=== PATIENT | male | born 1945 | race Caucasian/White ===

== ENCOUNTER 2019-08-13 11:56 | Inpatient (IN) | payer OTHER ==
[~2019-08-13] VITALS: Ht 193 cm; Wt 117.2 kg
[~2019-08-13 11:56] MED LIST: ADULT LOW DOSE81 MG PO; AUGMENTIN 875875 MG PO; BUSPIRONE HCL10 MG PO; CELEXA20 MG PO; CLONAZEPAM 1 MG1 M1 PO; COLACE100 MG PO; FLOMAX0.4 MG PO; HYDROXYZINE HCL50 MG PO; INDAPAMIDE2.5 MG PO; METOPROLOL SUCC50 MG PO; MILK OF MA2400 MG/10 PO; MOBIC7.5 MG PO; PROZAC 20 MG20 M1 PO; SEROQUEL200 MG PO; TESSALON PERLE100 MG PO; TRAMADOL 50 MG50 MG PO; TYLENOL325 MG PO; UNICOMPLEX M TA1 TA1 PO; WELLBUTRIN 100100 MG PO; XANAX 0.5 MG0.5 MG PO
[2019-08-13 11:57] VITALS: BP 120/51
[2019-08-13 13:17] LABS: ABSOLUTE NEUTROPHILS 15.9 thou/uL (1.4-8.2); BASOPHILS 0.2 % (0.0-2.0); EOSINOPHILS 0.4 % (0.0-3.0); HEMATOCRIT 38.8 % (42.0-52.0); HEMOGLOBIN 13.4 gm/dL (14.0-18.0); LYMPHOCYTES 3.4 % (24.0-44.0); MCH 31.5 pg (26.0-34.0); MCHC 34.5 g/dL (28.0-37.0); MCV 91.2 fL (80.0-100.0); MONOCYTES 5.2 % (1.0-8.0); PLATELET COUNT 238 thou/uL (150-400); POLYS 90.8 % (36.0-66.0); RBC 4.25 mil/uL (4.50-6.00); RDW 12.8 % (10.5-14.5); WBC 17.5 thou/uL (4.0-11.0)
[2019-08-13 13:28] LABS: ANION GAP 5 mmol/L (7-16); BUN 20 mg/dL (7-18); CALCIUM 9.3 mg/dL (8.5-10.1); CHLORIDE 89 mmol/L (98-107); CO2 29 mmol/L (21-32); CREATININE 1.2 mg/dL (0.7-1.3); GLUCOSE 121 mg/dL (74-106); SODIUM 123 mmol/L (136-145)
[2019-08-13 13:29] LABS: POTASSIUM 4.1 mmol/L (3.5-5.1)
[2019-08-13 13:38] LABS: ALBUMIN 3.5 g/dL (3.4-5.0); SGOT 29 U/L (15-37); SGPT 18 U/L (30-65); TOTAL BILIRUBIN 0.6 mg/dL (<0.1-1.0); TOTAL PROTEIN 7.1 g/dL (6.4-8.2); TROPONIN-I <0.06 ng/mL (<0.06)
[2019-08-13 14:28] LABS: URINE BILIRUBIN NEGATIVE (Negative); URINE BLOOD NEGATIVE (Negative); URINE CLARITY CLEAR; URINE COLOR YELLOW; URINE GLUCOSE-RANDOM* NEGATIVE (Negative); URINE KETONES NEGATIVE (Negative); URINE LEUKOCYTES-REFLEX NEGATIVE (Negative); URINE NITRITE-REFLEX NEGATIVE (Negative); URINE PROTEIN (DIPSTICK) NEGATIVE (Negative); URINE UROBILINOGEN 0.2 E.U./dl (0.2-1.0)
[2019-08-13 15:02] VITALS: BP 112/80
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
[2019-08-13 16:30] VITALS: BP 130/69
[2019-08-13] MEDS ORDERED: SERTRALINE HCL50 MG PO (16:55)
[2019-08-13 17:10] LABS: CALCIUM 9.3 mg/dL (8.5-10.1); CREATININE 1.2 mg/dL (0.7-1.3); POTASSIUM 3.9 mmol/L (3.5-5.1)
[2019-08-13 17:17] LABS: ALBUMIN 3.7 g/dL (3.4-5.0); TOTAL PROTEIN 7.3 g/dL (6.4-8.2)
[2019-08-13] MEDS ORDERED: CLARITIN10 M3 PO (17:38)
[2019-08-13] MEDS ORDERED: TUMS300 MG PO (17:39)
[2019-08-13] MEDS ORDERED: ATIVAN0.5 M1 PO (17:41)
[2019-08-13] MEDS ORDERED: MELATONIN3 M1 PO (17:41)
[2019-08-13] MEDS ORDERED: KAPSPARGO SPRIN25 MG PO (17:44)
[2019-08-13 17:45] LABS: TSH 0.885 uIU/mL (0.358-3.740)
[2019-08-13 19:33] VITALS: BP 133/55
[2019-08-13 23:50] VITALS: BP 122/54
[2019-08-14 01:05] LABS: CREATININE 1.3 mg/dL (0.7-1.3); POTASSIUM 3.2 mmol/L (3.5-5.1)
--- NOTE | 2019-08-14 04:11 | NUR ---
SLEPT PART OF SHIFT. BILATERAL EYES WITH YELLOW DRAINAGE AT TIMES, WASH WITH WARM CLOTH AND EYE GTTS PER ORDERS. TURNS SELF IN BED WITHOUT COMPLAINTS. DENIES NEED FOR PAIN MEDICATION. APPEARS CALM. WORKING ON GOALS AND PLAN OF CARE FOR NOC. PROGRESSING SLOWLY TOWARDS DISCHARGE GOALS. CONTINUE TO ASSES CLOSELY.
[2019-08-14 04:20] VITALS: BP 113/51
[2019-08-14 07:13] LABS: HEMATOCRIT 36.7 % (42.0-52.0); HEMOGLOBIN 12.6 gm/dL (14.0-18.0); MCH 31.8 pg (26.0-34.0); MCHC 34.3 g/dL (28.0-37.0); MCV 92.6 fL (80.0-100.0); RBC 3.96 mil/uL (4.50-6.00); RDW 13.2 % (10.5-14.5); WBC 8.6 thou/uL (4.0-11.0)
[2019-08-14 07:29] LABS: CALCIUM 8.6 mg/dL (8.5-10.1); CREATININE 1.1 mg/dL (0.7-1.3); MAGNESIUM 1.8 mg/dL (1.8-2.4); POTASSIUM 3.7 mmol/L (3.5-5.1)
[2019-08-14 09:37] VITALS: BP 134/55
[2019-08-14 09:40] VITALS: BP 131/74
[2019-08-14 09:43] VITALS: BP 115/72
--- NOTE | 2019-08-14 11:09 | EKG ---
[facility] [place] [address] ELECTROCARDIOGRAM REPORT Name: GRACIA TIMMONS Room #: 212-P ADM IN M.R.#: [id number] Admission: 08/13/19 Attend Phys: Horace Lagos MD Discharge: Date of : 41 Report #: [id number] THIS REPORT FOR: cc: Lorenzo Gallardo MD, Srinath MD Lundgren,Shilo Torres MD [facility] ~ THIS REPORT FOR: //name// [facility] ED Test Date: 2019-08-13 Test Time: 12:45:48 Pat Name: GRACIA TIMMONS Department: Room: [facility] Gender: M Hanger: BERHANE : 1945 Requested By: Angie Argueta Order Number: [id number] MD: Shilo Benavides Measurements Intervals [place] Rate: 66 P: -41 CA: 247 QRS: -24 QRSD: 108 T: 65 QT: 411 QTc: 431 Interpretive Statements Sinus rhythm Prolonged CA interval Nonspecific intraventricular conduction delay Compared to ECG 12/25/2014 12:29:48 First degree AV block now present Electronically Signed On 08-14-2019 11:07:36 CDT by Shilo Benavides [email or web address] <ELECTRONICALLY SIGNED> By: Shilo Benavides MD, [facility] 08/14/19 1107 1245 1245 Shilo Benavides MD, [facility] /EPI
[2019-08-14 16:42] VITALS: BP 124/65
--- NOTE | 2019-08-14 16:48 | NUR ---
ASSUMED CARE PT SHIFT CHANGE. ASSESSMENT CHARTED. MEDS GIVEN PER JUN. PT ALERT AND ORIENTED.VSS. DENIES PAIN. O2 SATS WNL ON ROOM AIR. PT UP TO COMMODE MODERATE ASSIST TOLERATING WELL. FACIAL BRUSING NOTED AROUND EYES AND CHIN AREA. EYE GTTS GIVEN PER ORDERS FOR EYE INFECTION. PT REQUESTING NOT TO BE SENT BACK TO CURRENT FACILITY. PT REFERRED TO CASE MANAGEMENT. APPETITE ADEQUATE, URINE OUTPUT ADEQUATE. SR MONITOR WITH FIRST DEGREE, OCCASIONAL PVC'S. PT CURRENTLY RESTING UP IN CHAIR DENYING OF NEEDS. WILL CONTINUE TO MONITOR AND FOLLOW THE POC.
[2019-08-14 19:36] VITALS: BP 146/70
[2019-08-15] VITALS (7 sets, daily range): BP systolic 122–138; BP diastolic 56–65
[2019-08-15 05:53] LABS: HEMATOCRIT 35.9 % (42.0-52.0); HEMOGLOBIN 12.5 gm/dL (14.0-18.0); MCHC 34.8 g/dL (28.0-37.0); MCV 92.1 fL (80.0-100.0); RBC 3.9 mil/uL (4.50-6.00); RDW 13.2 % (10.5-14.5); WBC 9.1 thou/uL (4.0-11.0)
[2019-08-15 06:10] LABS: CALCIUM 8.4 mg/dL (8.5-10.1); CREATININE 1.1 mg/dL (0.7-1.3); MAGNESIUM 1.7 mg/dL (1.8-2.4); POTASSIUM 3.7 mmol/L (3.5-5.1)
--- NOTE | 2019-08-15 06:35 | NUR ---
PATIENTS CARES WERE ASSUMED AT SHIFT CHANGE. PATIENT WAS ASSESSED AND MEDS WERE PASSED . PATIENT HAS ALOT OF BRUSING ON HIS FACE. PATIENT ALSO HAS CONJUCTIVITIS OU AND HAS GTTS HE TAKES. GTTS PUT IN THE ROOM TO NOT CONTAMINATE OTHERS. PATIENT WAS WASHED UP BEFORE BED AND LINENS WERE CHANGED.
--- NOTE | 2019-08-15 08:59 | 2DMMODE ---
[facility] [place] [address] 2 D/M-MODE ECHOCARDIOGRAM Name: GRACIA TIMMONS Room #: 212-P ADM IN M.R.#: [id number] Admission: 08/13/19 Attend Phys: Horace Lagos MD Discharge: Date of : 41 Report #: [id number] THIS REPORT FOR: cc: Lorenzo Gallardo MD, Srinath MD Lundgren,Shilo Torres MD [facility] ~ APPROVED REPORT Study performed: 08/15/2019 08:19:37 EXAM: Comprehensive 2D, Doppler, and color-flow Echocardiogram Patient Location: Bedside Room #: 212 Status: routine BSA: 2.48 HR: 71 bpm BP: 133/59 mmHg Rhythm: NSR Indications Sycopal event. HTN. 2D Dimensions RVDd: 42.51 mm IVSd: 12.45 (7-11mm) LVOT Diam: 23.87 (18-24mm) LVDd: 51.98 mm PWd: 11.00 (7-11mm) Ascending Ao: 38.83 (22-36mm) LVDs: 37.15 (25-40mm) Aortic Root: 41.85 mm Volumes Left Atrial Volume (Systole) Single Plane 4CH: 45.66 mL Single Plane 2CH: 58.03 mL LA ESV Index: 23.00 mL/m2 Aortic Valve AoV Peak Nirmal.: 1.59 m/s AO Peak Gr.: 10.06 mmHg LVOT Max P.77 mmHg LVOT Max V: 1.20 m/s HASMUKH Vmax: 3.39 cm2 Mitral Valve E/A Ratio: 0.8 MV Decel. Time: 139.45 ms [facility] [address] [place] [address] 2 D/M-MODE ECHOCARDIOGRAM Name: GRACIA TIMMONS Room #: 212-P [facility] IN [facility]#: [id number] Admission: 08/13/19 Attend Phys: Horace Lagos, Discharge: Date of : 41 Report #: [id number] MV E Max Nirmal.: 0.85 m/s MV A Nirmal.: 1.03 m/s MV PHT: 40.44 ms IVRT: 69.20 ms Pulmonary Valve PV Peak Nirmal.: 1.07 m/s PV Peak Gr.: 4.56 mmHg Tricuspid Valve RAP Estimate: 5.00 mmHg Left Ventricle The left ventricle is normal size. There is normal LV segmental wall motion. Mild concentric left ventricular hypertrophy. Left ventricular systolic function is normal. LVEF is 55-60%. Mild diastolic dysfunction Right Ventricle The right ventricle is normal size. The right ventricular systolic function is normal. Atria The left atrium size is normal. The right atrium size is normal. Aortic Valve The aortic valve is mildly calcified. Mild aortic regurgitation. There is no aortic valvular stenosis. Mitral Valve The mitral valve is normal in structure. There is no mitral valve regurgitation noted. No evidence of mitral valve stenosis. Tricuspid Valve The tricuspid valve is normal in structure. There is no tricuspid valve regurgitation noted. Unable to assess PA pressure. Pulmonic Valve Pulmonic valve is not well visualized. Great Vessels Aortic root is dilated at 4.2cm. The ascending aorta is mildly dilated (3.9cm). IVC is normal in size and collapses >50% with inspiration. Pericardium [facility] [place] ([facility]: [place]) [place] [address] 2 D/M-MODE ECHOCARDIOGRAM Name: SHANELLEGRACIA THEODORA Room #: 212-P [facility] IN M.R.#: [id number] Admission: 08/13/19 Attend Phys: Horace Lagos, Discharge: Date of : 41 Report #: [id number] There is no pericardial effusion. <Conclusion> Left ventricular systolic function is normal. There is normal LV segmental wall motion. LVEF is 55-60%. Mild diastolic dysfunction The aortic valve is mildly calcified. Mild aortic regurgitation, no stenosis. The mitral valve is normal in structure. No mitral valve regurgitation. Unable to assess pulmonary artery pressure. The ascending aorta is mildly dilated (3.9cm). There is no pericardial effusion. <ELECTRONICALLY SIGNED> By: Shilo Benavides MD, [facility] 08/15/19 0858 0858 7 Shilo Benavides MD, FACC /INF
--- NOTE | 2019-08-15 13:41 | NUR ---
Patient admits from [facility] post fall. Patient reported to RN he does not want to return to his apt. Sp with patient via phone. He reports he is in "great despair" if someone could legally euthonize him he would be good with that. He reports ailing health. He is estranged from 2 children. He reports he is own person and no support socially. He has not spoken to son for 35 years. He reports he has been in/out of facilities including psych treatment. He reports he has been to research psych and will never return to there and [place]. Patient reports this was awhile back that he rec treatment there. "I know how this works...I guess you could check on Ginny." In further discussion with patient he is interested in skilled care at [facility] and to transition back to his apt. He wants to know if that is possible. Call placed to [facility]. Sp with Sully who reports patient with recent non compliant behavior and worse mood. She reports all patient are to quantine and patient upset he can no longer go to dining area. He reported to nurse to send him to ER and when nurse did not he became upset. Sully requests psych eval for patient. Casemgt to inquire into skilled for patient then return to apt. Patient able to formulate a goal. Psych eval ordered. Therapy evals in place.
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
--- NOTE | 2019-08-15 16:07 | NUR ---
FAXED CLINICAL UPDATE TO [facility]ARE [facility] RECEIVED CONFIRMAATION AND SPOKE WITH JOHN WEINER LIASON FOR THE [facility] SHE RECEIVED UPDATE AND WILL LOOK INTO FOR POSS SKILLED STAY. DP TO FOLLOW.
--- NOTE | 2019-08-15 22:31 | NUR ---
PROGRESS PT DEPRESSED MAKING STATEMENTS THAT HE DOESN'T WANT TO WAKE UP AFTER HE GOES TO SLEEP. C/O HAVING NO FAMILY AND BEING ALONE . VSS TELE INTACT READING SR WITH SOME PACS WITH RATES IN 70'S. IV INSERTED IN LEFT FOREARM NS@100 AND CEFAZOLIN INFUSING. FACE WITH BRUISING TO BOTH SIDES OF CHIN BOTH EYES SWOLLEN WITH BRUISING, NOSE IF FX RATS PAIN AN 8 GIVEN TRAMADOL, TRAZADONE AND CLONEZEPAM FOR ANXIETY PAIN AND SLEEP. TO TRANSFER TO ROOM 444 ADMISSION STATUS DOWNGRADED TO MED SURG REPORT CALLED PT TO TRANSFER VIA W/C.
--- NOTE | 2019-08-15 22:55 | NUR ---
PT'S ADMIT STATUS DOWNGRADED TO MED SURG PT TO TRANSFER TO 4S ROOM 444 REPORT GIVEN TO SIMONE OLIVA ON PT TRANSFERRED VIA ALL BELONGINGS AND CHART SENT WITH.
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
[2019-08-16 05:07] VITALS: BP 120/56
[2019-08-16 05:55] LABS: HEMATOCRIT 36.6 % (42.0-52.0); HEMOGLOBIN 12.6 gm/dL (14.0-18.0); MCH 31.7 pg (26.0-34.0); MCHC 34.4 g/dL (28.0-37.0); MCV 92.2 fL (80.0-100.0); RBC 3.97 mil/uL (4.50-6.00); RDW 13.1 % (10.5-14.5); WBC 7.5 thou/uL (4.0-11.0)
[2019-08-16 06:03] LABS: CALCIUM 8.7 mg/dL (8.5-10.1); MAGNESIUM 1.9 mg/dL (1.8-2.4); POTASSIUM 3.8 mmol/L (3.5-5.1)
[2019-08-16 07:51] VITALS: BP 131/57
[2019-08-16] MEDS ORDERED: CIPROFLOXIN HC2.5 M1 OPHTHALMIC (13:00)
--- NOTE | 2019-08-16 13:07 | NUR ---
PT INIDCATED THAT HE WAS AGREEABLE WITH ADMISSION TO [address] [place] [address] HERE AT [facility]. PT IS FROM R[facility] AT [facility]. PT HAD WANTED TO GO TO THEIR HEALTH CENTER FOR POST ACUTE CARE STAY UPON DC PRIOR TO BEING AGREEABLE TO [facility]. LIAISON DANIELA WAS NOTIFIED OF HIS DESIRE TO GO TO CARE FACILITY PRIOR TO HIS POSSIBLE RETURN TO HIS RCF APARTMENT. PT INDICATED HE DOUBTS THAT HE WILL BE ABLE TO RETURN TO HIS [facility] APPARTMENT AND STATED THAT HE IS INTERESTED IN LOOING AT SKILLED THEN POSSIBLE LTC AT [facility]. CM EXPLAINED THAT PT WOULD CONTINUE TO HAVE PT AND OT ON [facility] AND THAT RECOMENDATIONS FOR APPROPRIATE LEVEL OF DC NEEDS WILL BE DETERMINED. CM HADN'T SENT REFERRAL TO [place] OF THIS NOTE. PT IS TO DISCHARGE TO [facility] THIS DAY.
--- NOTE | 2019-08-16 17:02 | NUR ---
PT IS AOX3, VSS, REPORTS HE WILL TRANSFER TO 5S. PT MADE STATEMENTS TO NURSE AND OTHER STAFF THAT THE WORLD WOULD BE BETTER OFF IF HE WAS . PT CALLS APPROPRIATELY. PAIN IN NOSE AND FACE IS CONTROLLED WITH ORAL ANALGESIC TRAMADOL. PT IS UP TO WC WITH 1 PERSON ASSIST. IV REMOVED FROM LEFT FA. REPORT CALLED TO NURSE ON 5S. PT TRANSFERRED BY WHEELCHAIR AND DISCHARGED FROM THIS UNIT.
== END 2019-08-16 17:17 | DRG 155 ==
LOC: ER 11:56 → EROBS 14:52 → 2N 14:52 → 4S 08-15 23:05
PROVIDERS: Nurse Practitioner Family; ADMIT Internal Medicine
PROC: 0CQ7XZZ Repair Tongue, External Approach (ICD-10-PCS; principal; 2019-08-13)
DX: S02.2XXA Fracture of nasal bones, initial encounter for closed fracture (principal); E87.1 Hypo-osmolality and hyponatremia; R44.3 Hallucinations, unspecified; S01.512A Laceration without foreign body of oral cavity, initial encounter; I95.1 Orthostatic hypotension; I10 Essential (primary) hypertension; F41.9 Anxiety disorder, unspecified; F32.9 Major depressive disorder, single episode, unspecified; K21.9 Gastro-esophageal reflux disease without esophagitis; M19.90 Unspecified osteoarthritis, unspecified site; F39 Unspecified mood [affective] disorder; E86.0 Dehydration; M47.812 Spondylosis without myelopathy or radiculopathy, cervical region; W01.0XXA Fall on same level from slipping, tripping and stumbling without subsequent striking against object, initial encounter; N40.0 Benign prostatic hyperplasia without lower urinary tract symptoms; E83.42 Hypomagnesemia; Z79.899 Other long term (current) drug therapy; Z88.5 Allergy status to narcotic agent; Z88.8 Allergy status to other drugs, medicaments and biological substances; Y93.89 Activity, other specified; Y92.89 Other specified places as the place of occurrence of the external cause; Y99.8 Other external cause status
CPT/HCPCS: 10081; 10102

== ENCOUNTER 2019-08-16 17:36 | Inpatient (IN) | payer OTHER ==
[~2019-08-16] VITALS: Ht 193 cm; Wt 116.6 kg
[~2019-08-16 17:36] MED LIST changes: +ATIVAN0.5 M1 PO; +CIPROFLOXIN HC2.5 M1 OPHTHALMIC; +CLARITIN10 M3 PO; +KAPSPARGO SPRIN25 MG PO; +MELATONIN3 M1 PO; +SERTRALINE HCL50 MG PO; +TUMS300 MG PO
[2019-08-16 18:06] VITALS: BP 138/64
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
[2019-08-16 20:06] VITALS: BP 140/69
--- NOTE | 2019-08-17 01:06 | NUR ---
Care assumed of patient at 1915: Patient resting in bed at start of shift. Patient ate 100% dinner. Patient appears anxious, sad, depressed. Reports depression as 10/10. Reports that this is all a mistake and he wants to go home. Patient easily irritable about multiple things. Patient upset that he can't control his bed settings independently, he can't have his cell phone, he wants his independent social sciences professor to continue to work with him (not the hospital social sciences professor). States that he does not "fit in this bubble" and we need to accomodate to his likings. Denies SI/HI/AH/VH. Patient has remained in bed throughout the shift. Patient took HS medication whole without difficulty. Patient made sure to notify this nurse at least 5 times that he has his masters degree, especially when avoiding questions asked. Denies pain or discomfort. Patient declined to sign consents this shift and told nurse "I know what they say, you just sign them". Education provided on need for them to be signed, states that he understands and he is "not stupid". Patient has bruising to face due to fall that occurred on 08/12 prior to admission.
[2019-08-17 08:31] VITALS: BP 126/67
--- NOTE | 2019-08-17 09:02 | NUR ---
[id number] Alessio was lying in bed with his breakfast on hte table. I asked if he needed any help. He was irritated. He stated his brkst had been sitting for 45 min and was cold. I offered to warm up his brkst. I offered to help him sit up. He proceed to inform me of his needs. I offered to sit up up on the side of the bed. He informed he that he could not eat sitting on the side of the bed as he "needs back support." I warmed up his brkst. I got a chair for him. I started to put on his shoes with legs braces, he stated he did not need them. I asked how he moves. He stated "isn't it obvious." I stated "no, sir it is not. This is the first time I met you, I am not aware of your mobility." I asked a GENERAL DENTIST/OWNER for assistance. He transfered with min - mod assitance x2. He is very irritable; he has many complaints about the unit i.e. no call light, cold bkfst and laying in bed to long. "I know about physiology and lying in bed to long is not good for the body. I explained the rationale for the call bells. He ate his brkst and then asked to go back to bed. As I left the room he still was complaining. Nothing I did for him was good enough.
--- NOTE | 2019-08-17 10:51 | NUR ---
Nutrition: pt admitted to [facility] unit with SI, depression from acute care short stay for S/P fall with nasal septum fx, tongue laceration, bruised face. 2 pt. risk indicated on nsg admission assessment. PMH: HTN, GERD, depression, anxiety, borderline DM. Current weight 257#. No weight hx available and pt reports weight loss but is unable to quantify amount or UBW. BMI 31, obesity class 1. PO intake past 4 days documented as 80-100% of meals. Pt reports he disagrees and had not been getting proper nutrition at his facility. Unable to provide any food preferences to RD. During interview, had to redirect multiple times, was very pre-occupied with being here and multiple aspects of care. Unhappy and complaining about everything, relayed to staff. Appears well nourished. Will monitor weight and intake trends but no intervention planned at present, place as low risk. complaining about everything, relayed to staff.
--- NOTE | 2019-08-17 16:03 | NUR ---
LOLA met with pt bedside. During her conversation pt's nurse and Dr. De La Rosa came in and talked to pt about his consent to treat forms. Pt eventually signed them after explaination from staff because he would like assistance getting into SNF. Pt said that he has been 1x and is now . He also has 2 children he is estranged from. He currently resides at the [facility] in [facility]; he told SW he sometimes does respite on the LTC side when he wants a break. He receives psych services through [facility]. He said he is not currently suicidal and has no method or plan. However, he does sometimes have hopeless thoughts. SW team will continue to follow pt during his stay on this unit.
--- NOTE | 2019-08-17 17:53 | NUR ---
IRRITABLE/DYSPHORIC MOOD UPON INITIAL APPROACH AND THROUGHOUT SHIFT. MULTIPLE COMPLAINTS REGARDING NO TV,NO CALL LIGHT,NO CELL PHONE STATING "JUST SENT ME BACK TO THAT OTHER FLOOR-I COULD HAVE ALL THAT STUFF WITH ME THERE AND I WAS GETTING MORE THERAPY THERE" DID HAVE LARGE BM. VOIDING PER URINAL. DENIES SI/SH/HI BUT IS VERY DRAMATIC IN STATEMENTS IE "IF I HAVE TO STAY HERE VERY LONG I WILL -I WON'T MAKE IT OUT" DENIES PLAN OR INTENT. SOME MILD PARANOIA NOTED IN CONVERSATION STATING "I DON'T TRUST ANYTHING YOU TELL ME I'VE BEEN LIED TOO TO MUCH-I AM AFRAID I WILL BE HERE FOREVER. DID REPORT GENERALIZED JOINT PAIN AND STIFFNESS RATED A 7 ON 1-10 SCALE ULTRAM 50MG GIVEN PO PRN AT 1230-DID COME OUT OF ROOM AND SIT IN GERICHAIR WITH REPORTED DECREASE IN PAIN TO A 3 AFTER ULTRAM. USING ROLLER WALKER BUT GAIT IS UNSTEADY AND WILL REFUSE OFFERS OF ASSISTANCE AT TIMES.
[2019-08-17 20:07] VITALS: BP 136/70
--- NOTE | 2019-08-17 23:33 | NUR ---
Assumed care of patient this pm shift. Patient in bed in his room. Patient appears depressed. Patient is calm and cooperative. Patient takes medications whole. Patient has several bruises on his chin and around his eyes from a previous fall. Patients affect is blunted. Patients clothes are clean. Patients assessment shows clear breath sounds, active bowel sounds, and s1 s2 heard with auscultation. Patient did not voice any concerns this evening. We will continue to monitor.
[2019-08-18 09:03] VITALS: BP 147/68
--- NOTE | 2019-08-18 11:03 | NUR ---
LOLA contacted [employer] to locate pt's psych doctor's info in preparation for discharge. SW team will continue to follow pt during his stay on this unit.
[2019-08-18] MEDS ORDERED: ZOLOFT100 MG PO (13:51)
[2019-08-18] MEDS ORDERED: MELATONIN5 M1 PO (13:52)
[2019-08-18] MEDS ORDERED: PROTONIX 20 MG20 M1 PO (13:52)
--- NOTE | 2019-08-18 14:45 | NUR ---
LOLA D/C Note Chica lft a vm for LOLA stating that she arranged transportation for pt for 1430. LOLA discussed this with Dr. De La Rosa who stated 1600 would be better. LOLA relayed this info for Chica who arranged transportation for 1600. LOLA provided update to pt who was in agreement with the plan. LOLA faxed pt's docs to [phone] including a [id number]. LOLA will file these docs and confirmation page in pt's hospital file. No other needs for SW team to address at this time.
--- NOTE | 2019-08-18 16:41 | NUR ---
ATTEMPTED X2 TO CALL NURSING REPORT TO [facility] INITIAL ATTEMPT RESULTED IN BEING TRANSFERED X3 AND BEING TOLD TO CALL BACK TO MAIN NUMBER AND ASK FOR RN "AT THE FRONT" MAIN NUMBER CALLED AGAIN AND TRANSFERED TO RN SALES AND OPERATIONS TRAINEE AND PHONE RANG FOR 5 MINUTES BEFORE EVENTUALLY DISCONNECTIN. MAIN NUMBER CALLED FOR 3RD TIME AND MESSAGE LEFT FOR INSULATION PROFESSIONAL TO HAVE REHAB UNIT CALL ME IF THEY NEEDED REPORT. DC PAPERWORK REVIEWED WITH PT INCLUDING MEDS,FOLLOW UP RECCOMDATIONS AND WHEN TO SEEK EMERGENCY CARE-DENIES SI/SH/HI. NO NOTED OR REPORTED ACUTE PSYCHOSIS-STATES HE IS "GLAD TO BE LEAVING I WOULD IF I HAD TO STAY HERE LONGER" PERSONAL BELONGINGS RETRIEVED FROM SECURITY AND SENT WITH PT ALONG WITH HARDCOPY PRESCRIPTIONS,DC INSTRUCTIONS,LABS ETC. LEFT FLOOR VIA WC ACCOMPNIED BY FOOD SERVICE TO AWAITING TRANSPORTATION FROM RECEIVING FACILITY. DENIES COMPLAINTS AT TIME OF DC
--- NOTE | 2019-08-18 16:41 | NUR ---
ASSUMED CARE OF PATIENT AT 0715, PATIENT ALERT AND ORIENTED X 4. PATIENT C/O PAIN WITH NOSE, TRAMADOL 1 TABLET GIVEN THIS AM. PATIENT IN BED AT START OF THE SHIFT. INCONT. OF URINE X 2 THIS SHIFT. PATIENT HAS FACIAL BRUISING NOTED. PATIENT ASSISTED UP TO THE RECLINER PRIOR TO LUNCH. PATIENT APPEARS TO BE DEPRESSED, HAS MULTIPLE COMPLIANTS ABOUT HIS CARE. DR MALIK HERE THIS AFTERNOON, STATES PATIENT WILL BE DISCHARGING TO REHAB FACILITY THIS AFTERNNON AROUND 1600. PATIENT C/O HEADACHE, TYLENOL 650 MG GIVEN WITH RELIEF. RAFAEL/RN CALLED REPORT TO THE REHAB. PATIENT DRESSED AND ASSISTED TO THE WHEELCHAIR, ALL PERSONAL BELONGINGS SENT WITH THE PATIENT. THIS RN TOOK PATIENT DOWN TO THE WHEELCHAIR VAN FOR TRANSPORT TO THE FACILITY.
== END 2019-08-18 16:00 | DRG 881 ==
LOC: SBH 17:36
PROVIDERS: ADMIT Psychiatry & Neurology Psychiatry
DX: F32.9 Major depressive disorder, single episode, unspecified (principal); E87.1 Hypo-osmolality and hyponatremia; R45.851 Suicidal ideations; I10 Essential (primary) hypertension; M14.672 Charcot's joint, left ankle and foot; F41.9 Anxiety disorder, unspecified; M47.812 Spondylosis without myelopathy or radiculopathy, cervical region; N40.0 Benign prostatic hyperplasia without lower urinary tract symptoms; Z79.899 Other long term (current) drug therapy; Z88.6 Allergy status to analgesic agent; Z88.5 Allergy status to narcotic agent
CPT/HCPCS: 10880

== ENCOUNTER 2019-09-07 15:02 | Inpatient (IN) | payer OTHER ==
[~2019-09-07] VITALS: Ht 193 cm; Wt 109.3 kg
[~2019-09-07 15:02] MED LIST changes: +MELATONIN5 M1 PO; +PROTONIX 20 MG20 M1 PO; +ZOLOFT100 MG PO
[2019-09-07 15:08] VITALS: BP 135/72
[2019-09-07 15:42] LABS: ABSOLUTE NEUTROPHILS 14.8 thou/uL (1.4-8.2); BASOPHILS 0.2 % (0.0-2.0); EOSINOPHILS 0.9 % (0.0-3.0); HEMATOCRIT 44.9 % (42.0-52.0); HEMOGLOBIN 15.8 gm/dL (14.0-18.0); LYMPHOCYTES 6.3 % (24.0-44.0); MCH 32.5 pg (26.0-34.0); MCHC 35.3 g/dL (28.0-37.0); PLATELET COUNT 326 thou/uL (150-400); POLYS 85.6 % (36.0-66.0); RBC 4.88 mil/uL (4.50-6.00); RDW 13.4 % (10.5-14.5); WBC 17.3 thou/uL (4.0-11.0)
[2019-09-07 15:46] LABS: URINE BILIRUBIN NEGATIVE (Negative); URINE BLOOD NEGATIVE (Negative); URINE CLARITY CLEAR; URINE COLOR YELLOW; URINE GLUCOSE-RANDOM* NEGATIVE (Negative); URINE KETONES NEGATIVE (Negative); URINE LEUKOCYTES-REFLEX NEGATIVE (Negative); URINE NITRITE-REFLEX NEGATIVE (Negative); URINE PROTEIN (DIPSTICK) NEGATIVE (Negative)
[2019-09-07 15:57] LABS: AMP/METHAMP Negative (Negative); BARBITURATES Negative (Negative); BENZODIAZEPINES Negative (Negative); COCAINE Negative (Negative); METHADONE Negative (Negative); OPIATES Negative (Negative); PCP Negative (Negative)
[2019-09-07 16:29] LABS: ALBUMIN 4.4 g/dL (3.4-5.0); ANION GAP 11 mmol/L (7-16); BUN 23 mg/dL (7-18); CALCIUM 9.8 mg/dL (8.5-10.1); CHLORIDE 88 mmol/L (98-107); CO2 29 mmol/L (21-32); CREATININE 1.5 mg/dL (0.7-1.3); GLUCOSE 131 mg/dL (74-106); POTASSIUM 3.8 mmol/L (3.5-5.1); SALICYLATE < 2.8 mg/dL (2.8-20.0); SGOT 15 U/L (15-37); SGPT 22 U/L (30-65); SODIUM 128 mmol/L (136-145); TOTAL BILIRUBIN 0.7 mg/dL (<0.1-1.0); TOTAL PROTEIN 8.7 g/dL (6.4-8.2); TROPONIN-I <0.06 ng/mL (<0.06)
[2019-09-07 17:56] LABS: ALBUMIN 4.3 g/dL (3.4-5.0); TOTAL PROTEIN 8.7 g/dL (6.4-8.2)
[2019-09-07 18:22] LABS: TSH 1.231 uIU/mL (0.358-3.740)
[2019-09-07 18:43] VITALS: BP 108/44
[2019-09-07 19:23] VITALS: BP 124/61
[2019-09-07 19:30] VITALS: BP 123/65
--- NOTE | 2019-09-07 20:43 | NUR ---
ADMISSION ASSESSMENT COMPLETED.PT TALKS IN A MONOLOGUE, MOSTLY MUMBLES. PT THINKS WE ARE HERE COLLUDING WITH THE [facility], HE HOWEVER SAYS HIS MOUTH IS SORE, I LOOKED AT IT AND IT LOOKS DRY-SOME WHITE LAYER ON TONGUE BUT NO VISIBLE SORES OR ULCERS. HE SAYS HIS MOUTH LEUNG. PT IS INCONTINENT, HE CAME IN WEARING BRIEFS. THEY ARE SOAKED. PT HAS NO STRENGTH IN HIS LEGS. HE WAS ABLE TO SQUEEZE WITH BOTH HANDS LIGHTLY. SHOE BRACE TO LLE REMOVED.PT TELLS ME HIS NAME AND MONTH. PT WAS GETTING IRRITATED I KEPT ASKING HIM QUESTIONS. HE WAS GETTING LOUD AND OCCASIONALLY BLURTS OUT SOME CUSS WORDS. PT WANTS TO BE LEFT ALONE TO SLEEP. HE C/O EVERYWHERE PAIN BUT ALSO SAID "MY RECTUM" HURTS. HE EXPRESSES THAT HE WISHES HE COULD BUT DENIES HAVING TRIED TO KILL HIMSELF.SITTER IN ROOM FOR CONTINUOUS MONITORING.
[2019-09-08 04:50] LABS: HEMATOCRIT 38.4 % (42.0-52.0); MCH 32.2 pg (26.0-34.0); MCHC 34.8 g/dL (28.0-37.0); MCV 92.4 fL (80.0-100.0); RBC 4.16 mil/uL (4.50-6.00); RDW 13.4 % (10.5-14.5)
[2019-09-08 05:02] LABS: CALCIUM 8.6 mg/dL (8.5-10.1); CREATININE 1.2 mg/dL (0.7-1.3); MAGNESIUM 1.7 mg/dL (1.8-2.4)
[2019-09-08 05:04] VITALS: BP 159/77
[2019-09-08 05:23] LABS: HEMOGLOBIN 13.4 gm/dL (14.0-18.0)
--- NOTE | 2019-09-08 08:20 | EKG ---
[facility] [place] [address] ELECTROCARDIOGRAM REPORT Name: GRACIA TIMMONS Room #: 436-P ADM IN M.R.#: [id number] Admission: 09/07/19 Attend Phys: Horace Lagos MD Discharge: Date of : 41 Report #: [id number] THIS REPORT FOR: cc: Burke Aiken James D. DO Lundgren, Craig H. MD [facility] ~ THIS REPORT FOR: //name// [facility] ED Test Date: 2019-09-07 Test Time: 16:05:38 Pat Name: GRACIA TIMMONS Department: Room: 436 Gender: M Dispute Coordinator: BERHANE : 1945 Requested By: Les Oliva Order Number: [id number] MD: Shilo Benavides Measurements Intervals [place] Rate: 74 P: -23 NV: 225 QRS: -35 QRSD: 109 T: 92 QT: 389 QTc: 432 Interpretive Statements Sinus rhythm Prolonged NV interval Left anterior fascicular block Poor R wave progression Compared to ECG 08/13/2019 12:45:48 [place] has shifted leftward Electronically Signed On 09-08-2019 8:18:48 CDT by Shilo Benavides [email or web address] <ELECTRONICALLY SIGNED> By: Shilo Benavides MD, [facility] 09/08/19 0818 1605 1605 Shilo Benavides MD, FAC /EPI
[2019-09-08 08:22] VITALS: BP 133/68
--- NOTE | 2019-09-08 15:07 | NUR ---
PT IS FROM [facility] FAXED CLINICAL UPDATE TO FACILITY SPOKE WITH RAQUEL IN ADM SHE RECEIVED UPDATE. DP TO FOLLOW.
--- NOTE | 2019-09-08 16:57 | NUR ---
ASSUMED PATIENT CARE AT 0700. UNCOOPERATIVE,ANGRY, ACKWARD AT TIMES. ADMITTED FOR DEHYDRATION. REFUSES TO TAKE ORAL MEDICINE. SAYS EVERYBODY IS TRYING TO TROUBLE HIM. SITTER AT BEDSIDE. IF ASKED IF HE HAD ANY PAIN, SAYS PAIN ALL OVER THE BODY. IV LEFT HAND.
[2019-09-08 19:45] VITALS: BP 138/68
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
[2019-09-09 04:27] LABS: HEMATOCRIT 37.9 % (42.0-52.0); MCH 31.8 pg (26.0-34.0); MCHC 34.4 g/dL (28.0-37.0); MCV 92.4 fL (80.0-100.0); RBC 4.1 mil/uL (4.50-6.00); RDW 13.3 % (10.5-14.5); WBC 8.4 thou/uL (4.0-11.0)
[2019-09-09 04:45] LABS: CALCIUM 8.6 mg/dL (8.5-10.1); CREATININE 0.9 mg/dL (0.7-1.3); MAGNESIUM 1.8 mg/dL (1.8-2.4); POTASSIUM 3.7 mmol/L (3.5-5.1)
--- NOTE | 2019-09-09 07:33 | NUR ---
PT REFUSED TO SIGN ANY CONSENT PAPERWORK. DAUGHTER JAKE FUNEZ [phone] WAS CALLED THIS MORNING AND UPDTED ABOUT THE PATIENT.
[2019-09-09 07:40] VITALS: BP 140/50
--- NOTE | 2019-09-09 11:37 | NUR ---
FAXED CLINICAL UPDATE TO [facility] ON 09/07 SPOKE WITH RAQUEL IN ADM SHE RECEIVED UPDATE AND WILL BE ABLE TO ACCEPT BACK AT DISCHARGE.
--- NOTE | 2019-09-09 12:49 | NUR ---
ASSUMED CARE OF THE PT AT 0700. PT REFUSES TO GET OUT THE BED AND WORK WITH PT/OT. PT REFUSES TO EAT ANYTHING AND WILL ONLY TAKE SIPS OF WATER. PT STATES, "HE FEELS LIKE HE WANTS TO WASTE AWAY AND ", BUT HAS NO PLAN. INCREASED ROUNDING TO Q1 HOUR. PT REFUSED TO WEAR SPECIAL FOOT BRACE FOR L FOOT. L HAND IV DRY AND INTACT AND WRAPPED WITH PROTECTIVE COVERING. FALL PRECAUTIONS IN PLACE, BED IN THE LOWEST POSITION AND CALL LIGHT IS WITHIN REACH. WILL CONTINUE TO MONITOR THE PT.
--- NOTE | 2019-09-09 13:21 | NUR ---
CM REVIEWED CHART AND SPOKE WITH ATTENDING. PT IS SLOWLY PROGRESSING TOWARDS DISCHARGE GOALS AND IS READY FOR DISCHARGE SOON. PSYCHIATRIST SAW PATIENT AND MANAGING MEDICATIONS. PT HAD A SITTER YESTERDAY BUT ONCE SEEING THE PSYCHIATRIST THIS WAS DISCONTINUED. JING SPOKE WITH RAQUEL IN ADMISSIONS AT [facility] WHERE PATIENT CAME IN FROM. SHE STATES THAT PATIENT MUST BE OFF OF A SITTER FOR 48HRS PRIOR TO DISCHARGE AND THAT THEY MUST HAVE A NEGATIVE COVID TEST BEFORE ACCEPTING PATIENT BACK. JING NOTIFIED ATTENDING AND SITTER WAS DISCONTINUED ON 09/07 LATE IN EVENING SO EARLIEST DISCHARGE WOULD BE THURSDAY IF PATIENT IS MEDICALLY STABLE AND COVID TEST IS NEGATIVE. ONCE PATIENT IS MEDICALLY STABLE FOR DISCHARGE CONTACT RAQUEL IN ADMISSION AT [facility] CELL:[phone] TO FACILITATE DISCHARGE. SHE WILL ARRANGED TRANSPORT. YOU MUST FAX THE RESULT OF THE COVID TEST TO THEM PRIOR TO DISCHARGE AT FAX:[phone]. ALSO FAX DISCHARGE ORDERS AND SUMMARY TO THAT FAX. REPORT WILL NEED TO BE CALLED TO [phone]. CHART COPY WILL NEED TO BE SENT WITH PATIENT. JING SPOKE WITH XOCHILT MARTINEZ DAUGHTER [phone] WHO WANTS TO BE CONTACTED PRIOR TO DISCHARGE.
--- NOTE | 2019-09-09 14:21 | NUR ---
Physician would like to start calorie count to determine adequacy of oral intake. Envelope on door and will start 09/08, 09/09, 09/10
[2019-09-09 16:33] VITALS: BP 148/56
[2019-09-09 19:30] VITALS: BP 141/59
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
[2019-09-10 06:35] LABS: HEMATOCRIT 39.3 % (42.0-52.0); HEMOGLOBIN 13.8 gm/dL (14.0-18.0); MCH 32.2 pg (26.0-34.0); MCV 91.9 fL (80.0-100.0); RBC 4.27 mil/uL (4.50-6.00); RDW 13.4 % (10.5-14.5); WBC 9.7 thou/uL (4.0-11.0)
[2019-09-10 06:47] LABS: CALCIUM 9.1 mg/dL (8.5-10.1); MAGNESIUM 1.7 mg/dL (1.8-2.4)
--- NOTE | 2019-09-10 13:57 | NUR ---
PT CARE ASSUMED AT 0700. ALERT TO SELF. PT COMPLAINING ABOUT WANTING TO WITHOUT A PLAN. COVID TEST DONE WITH NEGATIVE RESULT. IV PATENT WITH NO REDNESS OR EDEMA. FLUIDS INFUSING. ONE TIME DOSE OF MAGNESIUM GOING. PT UP IN THE RECLINER WITH 2 ASSIST DUE TO CONTINUES COMMENTS OF "I CANNOT DO THIS' i WANT TO GET UP, BUT I CANNOT GET UP" iM WET AND NEED TO BE CLEANED,BUT CANNOT DO IT" MANY NEGATIVE COMMENTS FROM PT. PT DID TAKE HIS MEDICATION WITH LOTS OF ENCOURAGEMENT. PT DECLINED FAMILY UPDATE. PT TO DC TOMORROW TO [place]. CALMING MUSIC RUNNING IN ROOM. PT TAKING A NAP. FALL PROTOCOL IN PLACE. BED EXSTENDER PLACED ON BED. PT REFUSED HIS BREAKFAST AND LUNCH. CALL LIGHT IN REACH. WILL CONTINUE TO MONITOR. CALORIC INTAKE MONITORED.
[2019-09-10 17:04] VITALS: BP 130/71
[2019-09-10 19:15] VITALS: BP 136/84
--- NOTE | 2019-09-11 02:59 | NUR ---
ASSUMED PT CARE AT APPROX 1900.PT ALERT/FORGETFUL/CONFUSED AND PARANOID.PT WITH POOR APPETITE AND PO INTAKE.PT WAS ABLE TO EAT HALF CUP OF PUDDING AND 120CC OF APPLE JUICE SO FAR.PT AFRAID THAT IF DRINK OR EAT ,IT WILL MAKE HIM HAVE A BM AND URINATE A LOT.PT EDUCATED BUT HE IS STILL PARANOID ABOUT EATING AND DRINKING.PT INCONTINENT,AUDREY CARE WITH EACH INCONTINENCE.PT RESTING ON HIS BED AT THIS TIME.FALL PRECAUTIONS IN PLACE,CALL LIGHT WITHIN REACH.
[2019-09-11 03:30] VITALS: BP 144/61
[2019-09-11 07:29] LABS: HEMATOCRIT 39.5 % (42.0-52.0); HEMOGLOBIN 13.5 gm/dL (14.0-18.0); MCH 31.8 pg (26.0-34.0); MCHC 34.2 g/dL (28.0-37.0); MCV 93.2 fL (80.0-100.0); RBC 4.24 mil/uL (4.50-6.00); RDW 13.3 % (10.5-14.5); WBC 9.2 thou/uL (4.0-11.0)
[2019-09-11 07:55] LABS: CALCIUM 8.8 mg/dL (8.5-10.1); POTASSIUM 3.8 mmol/L (3.5-5.1)
--- NOTE | 2019-09-11 14:43 | NUR ---
PT CARE ASSUMED AT 0700. A&Ox4. PT HAS TAKEN HIS MEDICATIONS WITH A LOT OF ENCOURAGEMENT. DEHYDRATION RESOLVED. PT IS UP IN THE RECLINER. PT IS DISCHARGING BACK TO [facility] TODAY. IV IS PATENT WITH NO REDNESS OR EDEMA. IV WILL BE REMOVED BEFORE DISCHARGE. FAMILY NOTIFIED [facility] DISCHARGE. TRANSPORTATION WILL BE ARRANGE BY [facility]. FALL PROTOCOL IN PLACE. CALL LIGHT IN REACH. WILL CONTINUE TO MONITOR.
--- NOTE | 2019-09-15 09:04 | NUR ---
cm received a call from [facility] WHO STATES THEY ARE IN NEED OF A [id number] FOR PATIENT. PT WAS RECENTLY HERE AT [facility] AND HAD A RECENT STAY ON THE [facility] AND SHE REPORTS NEEDING THIS FORM. FACILITY WAS ABLE TO ACCEPT PT BACK SHE STATES DUE TO THE LEVEL 11 BEING WAIVED AT THIS TIME DUE TO THE COVID 19 PANDEMIC BUT ARE IN NEED OF THIS FORM. CM COMPLETED THE FORM AND HAD DR ALVARENGA SIGN AND IT WAS FAXED OVER TO THE FACILITY WHO STATES THEY WILL COMPLETE THE LEVEL II SCREENING.
== END 2019-09-11 17:21 | DRG 682 ==
LOC: ER 15:02 → EROBS 18:38 → 4S 18:38
PROVIDERS: Emergency Medicine; ADMIT Internal Medicine
DX: N17.0 Acute kidney failure with tubular necrosis (principal); E43 Unspecified severe protein-calorie malnutrition; E87.1 Hypo-osmolality and hyponatremia; E86.0 Dehydration; R63.0 Anorexia; I48.91 Unspecified atrial fibrillation; I50.9 Heart failure, unspecified; E87.8 Other disorders of electrolyte and fluid balance, not elsewhere classified; F32.9 Major depressive disorder, single episode, unspecified; F41.9 Anxiety disorder, unspecified; M25.50 Pain in unspecified joint; E83.42 Hypomagnesemia; E87.6 Hypokalemia; I11.0 Hypertensive heart disease with heart failure; N40.0 Benign prostatic hyperplasia without lower urinary tract symptoms; R63.4 Abnormal weight loss; K21.9 Gastro-esophageal reflux disease without esophagitis; G47.00 Insomnia, unspecified; F42.9 Obsessive-compulsive disorder, unspecified; Z79.899 Other long term (current) drug therapy; Z88.8 Allergy status to other drugs, medicaments and biological substances; Z68.29 Body mass index [BMI] 29.0-29.9, adult; Z03.818 Encounter for observation for suspected exposure to other biological agents ruled out
CPT/HCPCS: 10102